=== PATIENT | female | born 1955 | race Caucasian/White ===

== ENCOUNTER → 2019-05-10 12:53 | Outpatient (CLI) | payer MEDICARE, SELFPAY ==
--- NOTE | 2019-05-10 12:58 | BD_ITS ---
STUDY: DUAL ENERGY X-RAY ABSORPTIOMETRY / DXA REASON FOR EXAM: Female, 64 years old. The patient is postmenopausal. Loss of height. TECHNIQUE: Bone Mineral Density (BMD) measurements of lumbar spine and bilateral hips were obtained. COMPARISON: None. FINDINGS: Lumbar Spine (L1-L4): g/cm2 (1.193) / T-score (0.2) / Z-score (1.8) Findings are suggestive of normal bone density with a low fracture risk. Left Femur Total: g/cm2 (0.850) / T-score (-1.3) / Z-score (0.0) Left Femoral Neck: g/cm2 (0.771) / T-score (-1.9) / Z-score (-0.4) Right Femur Total: g/cm2 (0.872) / T-score (-1.1) / Z-score (0.2) Right Femoral Neck: g/cm2 (0.805) / T-score (-1.7) / Z-score (-0.2) BD/Dexa Bone Density Study IMPRESSION: The patient is considered osteopenic as outlined below according to World Woody Organization (WHO) criteria with a moderate fracture risk. Reference Information: The T-score is the number of standard deviations above or below the standard which is normal for young adults at their peak bone mineral density. The World Health Organization (WHO) interprets the T-scores as follows: Above -1 Normal bone density Between -1 and -2.5 Osteopenia Equal to / or below -2.5 Osteoporosis As a practical clinical guideline, osteopenia may be graded as follows: Mild -1 through -1.5 Moderate -1.6 through -2.0 Severe -2.1 through -2.4 The Z-score is the number of standard deviations above or below age-matched controls. A Z-score of less than -1.5 would be considered abnormal. References: 1. NIH Osteoporosis and Related Bone Diseases http://www.osteo.org 2. International Society for Clinical Densitometry http://www.iscd.org 3. National Osteoporosis Foundation http://www.nof.org Electronically Signed: Darell Miranda, at 15:46 EST , Service support ,
--- NOTE | 2019-05-10 12:58 | BI_ITS ---
MAMMOGRAPHY - BILATERAL SCREENING REASON FOR EXAM: Female, 64 years old. Routine annual screening examination. PERTINENT HISTORY: Aunts with breast cancer. TECHNIQUE: Digital bilateral breast john (3D mammographic acquisition) in the CC and MLO projections. 2-D mediolateral oblique (MLO) and craniocaudad (CC) views of both breasts were obtained. CAD: Full Field Digital Mammography with Computer Added Detection was performed. COMPARISON: Comparison is made with prior examination dated November 17, 2015 and July 08, 2014. FINDINGS: Breast Composition: The breasts are heterogeneously dense, which may obscure small masses. There are no dominant masses or suspicious calcifications. No other significant abnormalities are identified. There has been no significant change since the prior study. BI/SCREEN MAMM (CAD) W/JOHN BILAT IMPRESSION: Stable bilateral screening mammogram. Yearly follow-up mammogram recommended. (A) ASSESSMENT CATEGORY: BIRADS Category 1: Negative. A letter regarding these results will be sent to the patient by the facility within 30 days. Approximately 10% of breast cancers are not detected by mammography. A normal mammogram should not delay biopsy of a clinically suspicious abnormality. [id number] Electronically Signed: Darell Miranda, at 8:23 EST , Service support ,
== END ==
PROVIDERS: Family Provider Family Medicine; PCP Family Medicine; Referring Provider Nurse Practitioner Primary Care; Visit Provider Nurse Practitioner Primary Care
DX: Z12.31 Encounter for screening mammogram for malignant neoplasm of breast (principal); Z13.820 Encounter for screening for osteoporosis; Z78.0 Asymptomatic menopausal state; Z80.3 Family history of malignant neoplasm of breast
CPT/HCPCS: 77063; 77067; 77080

== ENCOUNTER → 2020-05-26 07:37 | Outpatient (CLI) | payer MEDICARE, SELFPAY ==
--- NOTE | 2020-05-26 07:40 | BI_ITS ---
MAMMOGRAPHY - BILATERAL SCREENING REASON FOR EXAM: Female, 65 years old. Routine annual screening examination. PERTINENT HISTORY: TECHNIQUE: Digital bilateral breast john (3D mammographic acquisition) in the CC and MLO projections. 2-D mediolateral oblique (MLO) and craniocaudad (CC) views of both breasts were obtained. CAD: Full Field Digital Mammography with Computer Added Detection was performed. COMPARISON: 05/10/2019 and 11/17/2015 and 07/08/2014 FINDINGS: Breast Composition: There are scattered areas of fibroglandular density. There are no dominant masses or suspicious calcifications. No other significant abnormalities are identified. BI/SCREEN MAMM (CAD) W/JOHN BILAT IMPRESSION: Stable bilateral screening mammogram. Yearly follow-up mammogram recommended. (A) ASSESSMENT CATEGORY: BIRADS Category 2: Benign. A letter regarding these results will be sent to the patient by the facility within 30 days. Approximately 10% of breast cancers are not detected by mammography. A normal mammogram should not delay biopsy of a clinically suspicious abnormality. [id number] Electronically Signed: Kate Daley, at 15:28 EST Tel , Service support ,
== END ==
PROVIDERS: PCP Family Medicine; Referring Provider Nurse Practitioner Primary Care; Visit Provider Nurse Practitioner Primary Care
DX: Z12.31 Encounter for screening mammogram for malignant neoplasm of breast (principal)
CPT/HCPCS: 77063; 77067

== ENCOUNTER → 2021-05-27 09:55 | Outpatient (CLI) | payer MEDICARE, SELFPAY ==
--- NOTE | 2021-05-27 09:58 | BI_ITS ---
MAMMOGRAPHY - BILATERAL SCREENING 3-D TOMOSYNTHESIS REASON FOR EXAM: Female, 66 years old. Screening PERTINENT HISTORY: No significant family history. TECHNIQUE: 2-D mammograms and 3-D Tomosynthesis of the breast (s) were performed. CAD was performed. COMPARISON: 05/26/2020 FINDINGS: The breast composition is heterogeneously dense that can obscure small breast masses. Scattered benign calcifications are seen. No dense spiculated masses or suspicious microcalcifications are identified. No architectural distortion is identified. There is no skin thickening or retraction. There has been no significant change since the prior study. BI/SCRN MAMM (CAD)W/JOHN BILAT IMPRESSION: No mammographic signs of malignancy. Routine yearly mammograms recommended. ASSESSMENT CATEGORY: BIRADS Category 1: Negative. A letter regarding these results will be sent to the patient by the facility within 30 days. FOLLOW UP RECOMMENDATION: Yearly follow up mammogram recommended. (A) Approximately 10% of breast cancers are not detected by mammography. A normal mammogram should not delay biopsy of a clinically suspicious abnormality. Electronically Signed: Charles Garcia MD at 11:46 EST Tel , Service support ,
--- NOTE | 2021-05-27 09:59 | BD_ITS ---
STUDY: DUAL ENERGY X-RAY ABSORPTIOMETRY / DXA REASON FOR EXAM: Female, 66 years old. M85.89. Patient is postmenopausal. TECHNIQUE: Bone Mineral Density (BMD) measurements of lumbar spine and bilateral hips were obtained. COMPARISON: Comparison is made with prior examination dated 05/10/2019. FINDINGS: Lumbar Spine (L1-L4): g/cm2 (1.037) / T-score (-0.9) / Z-score (1.9) Findings are suggestive of normal bone density with a low fracture risk. Left Femur Total: g/cm2 (0.808) / T-score (-1.1) / Z-score (0.3) Left Femoral Neck: g/cm2 (0.601) / T-score (-2.2) / Z-score (-0.8) Right Femur Total: g/cm2 (0.834) / T-score (-0.9) / Z-score (0.5) Right Femoral Neck: g/cm2 (0.631) / T-score (-2.0) / Z-score (-0.3) The T-Scores on the most recent prior examination were: Lumbar Spine (L1-L4): There has been worsening of bone density since the previous examination. Left Femur Total: which represents an improvement of 2.6%. Right Femur Total: which represents an improvement of 3%. BD/Dexa Bone Density Study IMPRESSION: The patient is considered osteopenic as outlined below according to World Woody Organization (WHO) criteria with a moderate fracture risk. There has been improvement of bone density since the previous examination. Reference Information: The T-score is the number of standard deviations above or below the standard which is normal for young adults at their peak bone mineral density. The World Health Organization (WHO) interprets the T-scores as follows: Above -1 Normal bone density Between -1 and -2.5 Osteopenia Equal to / or below -2.5 Osteoporosis As a practical clinical guideline, osteopenia may be graded as follows: Mild -1 through -1.5 Moderate -1.6 through -2.0 Severe -2.1 through -2.4 The Z-score is the number of standard deviations above or below age-matched controls. A Z-score of less than -1.5 would be considered abnormal. References: 1. NIH Osteoporosis and Related Bone Diseases www osteo.org 2. International Society for Clinical Densitometry www iscd.org 3. National Osteoporosis Foundation www nof.org Electronically Signed: Darell Miranda MD at 15:38 EST , Service support ,
== END ==
PROVIDERS: PCP Family Medicine; Referring Provider Nurse Practitioner Primary Care; Visit Provider Nurse Practitioner Primary Care
DX: M85.89 Other specified disorders of bone density and structure, multiple sites (principal); Z12.31 Encounter for screening mammogram for malignant neoplasm of breast
CPT/HCPCS: 77063; 77067; 77080

== ENCOUNTER → 2023-06-14 | Outpatient (CLI) | payer MEDICARE, SELFPAY ==
--- NOTE | 2023-06-14 09:23 | BI_ITS ---
MAMMOGRAPHY - BILATERAL SCREENING REASON FOR EXAM: Female, 68 years old. Routine annual screening examination. PERTINENT HISTORY: Aunts with breast cancer. Prior right stereotactic breast biopsy. TECHNIQUE: Digital bilateral breast john (3D mammographic acquisition) in the CC and MLO projections. 2-D mediolateral oblique (MLO) and craniocaudad (CC) views of both breasts were obtained. CAD: Full Field Digital Mammography with Computer Added Detection was performed. COMPARISON: Comparison is made with prior study dated May 27, 2021 and May 26, 2020. FINDINGS: Breast Composition: The breasts are heterogeneously dense, which may obscure small masses. There are no dominant masses or suspicious calcifications. No other significant abnormalities are identified. There has been no significant change since the prior study. BI/SCRN MAMM (CAD)W/JOHN BILAT IMPRESSION: Stable bilateral screening mammogram. Yearly follow-up mammogram recommended. (A) ASSESSMENT CATEGORY: BIRADS Category 1: Negative. A letter regarding these results will be sent to the patient by the facility within 30 days. Approximately 10% of breast cancers are not detected by mammography. A normal mammogram should not delay biopsy of a clinically suspicious abnormality. [id number] Electronically Signed: Darell Miranda MD at 11:08 EST ,
--- NOTE | 2023-06-14 09:28 | BD_ITS ---
STUDY: DUAL ENERGY X-RAY ABSORPTIOMETRY / DXA REASON FOR EXAM: Female, 68 years old. Z780 TECHNIQUE: Bone Mineral Density (BMD) measurements of lumbar spine and bilateral hips were obtained. COMPARISON: Comparison is made with prior study dated May 27, 2021. FINDINGS: Lumbar Spine (L1-L4): g/cm2 (1.039) / T-score (-0.1) / Z-score (2.0) Findings are suggestive of normal bone density with a low fracture risk. Left Femur Total: g/cm2 (0.817) / T-score (-1.0) / Z-score (0.5) Left Femoral Neck: g/cm2 (0.676) / T-score (-1.6) / Z-score (0.2) Right Femur Total: g/cm2 (0.792) / T-score (-1.2) / Z-score (0.3) Right Femoral Neck: g/cm2 (0.595) / T-score (-2.3) / Z-score (-0.5) The T-Scores on the most recent prior examination were: Lumbar Spine (L1-L4): There has been improvement of bone density since the previous examination. Left Femur Total: which represents an improvement of 1.1%. Right Femur Total: which represents a worsening of 5.1%. BD/Dexa Bone Density Study IMPRESSION: The patient is considered osteopenic as outlined below according to World Woody Organization (WHO) criteria with a moderate fracture risk. There has been improvement of bone density since the previous examination. Reference Information: The T-score is the number of standard deviations above or below the standard which is normal for young adults at their peak bone mineral density. The World Health Organization (WHO) interprets the T-scores as follows: Above -1 Normal bone density Between -1 and -2.5 Osteopenia Equal to / or below -2.5 Osteoporosis As a practical clinical guideline, osteopenia may be graded as follows: Mild -1 through -1.5 Moderate -1.6 through -2.0 Severe -2.1 through -2.4 The Z-score is the number of standard deviations above or below age-matched controls. A Z-score of less than -1.5 would be considered abnormal. References: 1. NIH Osteoporosis and Related Bone Diseases www osteo.org 2. International Society for Clinical Densitometry www iscd.org 3. National Osteoporosis Foundation www nof.org Electronically Signed: Darell Miranda MD at 12:34 EST ,
--- OUTSIDE RECORDS SUMMARY | 2023-06-14 09:37 | XMS RPT_ITS | CCD ---
Author Name Unknown Address [address] [place] [address] Organization [facility] Care Team Providers Care Coat Room Attendant Name Role Phone LARRY SHAW, JORGE Chester Primary Care Physician Edmundo GALE, Jess Unavailable [phone] JOSE G SHAW, DR JOANN Llanes Attending Gladys PATEL MD, ADRIANA Dickey Primary Care Unavailable YASMEEN LORENZO, ANAIS Barnes Attending Brandon LORENZO, ANAIS Barnes Primary Care Brandon ilserafin Allergies Allergy Classification Reported Allergen(s) Allergy Type Date of Onset Reaction(s) Facility (1 source) House dust mite drug allergy 08-06-2021 [facility] Work Phone: Medications Current Medications Medication Drug Class(es) Dates Sig (Normalized) Sig (Original) baclofen 10 mg oral tablet (1 source) gamma-Aminobutyri c Acid-ergic Agonist Start: 08-06-2021 End: 08-16-2021 take 1 tablet by mouth three times daily as needed BACLOFEN 10 MG TABS Take 1 tablet by mouth three times a day as needed baclofen [id number] Jess Wyatt PA-C Calcium Citrate (5 sources) Start: 08-18-2020 calcium citrate Oral, BID, 0 Refill(s) Start Date: 08/18/20 Status: Ordered estradiol 0.1 mg/ml vaginal cream (4 sources) Estrogen Start: 04-15-2022 End: 04-10-2023 estradiol 0.1 mg/g vaginal cream 1 gram(s), Vaginal, qHS, # 90 gram(s), 3 Refill(s), Pharmacy: [facility], 166, cm, 04/15/22 8:49:00 EST, Height, kg, 04/15/22 8:49:00 EST, Dosing Weight Start Date: 04/15/22 Stop Date: 04/10/23 Status: Ordered Problems Active Problems Problem Classification Problem Date Documented Da te Episodic/Chronic Other bone disease and musculoskeletal deformities (5 sources) Osteopenia 08-18-2020 Episodic Residual codes; unclassified (5 sources) Family history of cancer 08-20-2020 Episodic Spondylosis; intervertebral disc disorders; other back problems (2 sources) Backache; Translations: [Dorsalgia, unspecified] Onset: 08-06-2021 08-06-2021 Episodic Sprains and strains (1 source) Low back strain; Translations: [Strain of muscle, fascia and tendon of lower back, initial encounter] Onset: 08-06-2021 08-07-2021 Episodic Thyroid disorders (5 sources) Hypothyroidism 04-19-2019 Chronic Unclassified (5 sources) Annual wellness visit 04-19-2019 Unclassified (20 sources) Patient encounter status 04-19-2019 Past or Other Problems Problem Classification Problem Date Documented Da te Episodic/Chronic Unclassified (1 source) Problem Results Test Name Value Interpretation Reference Range Facil ity Vital Signs Date Time Vital Sign Value Performing Clinician Facility NEGATED: Highlighted [id number] 10:54-0500 Body height 162.56 cm Martinaddis Chandra AT [facility] Work Phone: NEGATED: Highlighted [id number] 10:54-0500 Body height 163 cm Martin Chandra AT [facility] Work Phone: NEGATED: Highlighted [id number] 10:54-0500 Body mass index (BMI) [Ratio] 23.26 kg/m2 Martin Chandra AT [facility] Work Phone: NEGATED: Highlighted [id number] 10:54-0500 Body weight 61.24 kg Martin Chandra AT [facility] Work Phone: NEGATED: Highlighted [id number] 10:54-0500 Body weight 61 kg Martin Chandra AT [facility] Work Phone: Encounters Encounter Date Encounter Type Care Provider Facility Start: 04-25-2023 End: 2023 ambulatory ANAIS ARANA AUDIO PRODUCTION MANAGER-CORPORATE REPRESENTATIVE Facility:B Start: 09-27-2022 End: 09-28-[address] JOANN ARAIZA MD Facility:B Start: 04-15-2022 End: 04-15-2022 Patient encounter procedure ANAIS ARANA AUDIO PRODUCTION MANAGER-CORPORATE REPRESENTATIVE [facility] Start: 10-12-2021 End: 10-12-[address] JOANN ARAIZA MD [facility] Start: 09-25-2021 End: 09-25-[address] JOANN ARAIZA MD [facility] Start: 08-13-2021 End: 09-30-2021 Physical therapy management JESS TOLENTINO [facility] Start: 08-06-2021 End: 08-06-2021 Pt evaluation Jess BABIN-Nahid Work Phone: [facility] Work Phone: Start: 04-13-2021 End: 04-13-2021 Patient encounter procedure EDILIA BOWMAN AUDIO PRODUCTION MANAGER-CORPORATE REPRESENTATIVE [facility] Procedures Date Procedure Procedure Detail Performing Clinician Start: 10-12-2021 Echocardiography CECILIO ARANA AUDIO PRODUCTION MANAGER-CORPORATE REPRESENTATIVE Plan of Treatment Date Care Activity Detail Author Start: 08-19-2021 End: 08-19-2021 Patient encounter procedure Appointment [facility] Work Phone: Start: 08-06-2021 End: 08-06-2021 Radex spine lumbosacral minimum 4 views XR LUMBAR 4VWS FLEX/EX [facility] Work Phone: Immunizations Immunization Date Immunization Notes Care Provider Lucero lee 04-15-2022 influenza, high dose seasonal, preservative-free ANAIS ARANA AUDIO PRODUCTION MANAGER-CORPORATE REPRESENTATIVE [facility] 04-09-2021 influenza, high dose seasonal, preservative-free; Translations: [Fluad Quadrivalent PF ] EDILIA BOWMAN AUDIO PRODUCTION MANAGER-CORPORATE REPRESENTATIVE [facility] 07-30-2020 SARS-CoV-2 (COVID-19 ) [id number] vaccine EDILIA BOWMAN AUDIO PRODUCTION MANAGER-CORPORATE REPRESENTATIVE [facility] 03-07-2020 influenza virus vaccine, unspecified formulation EDILIA BOWMAN AUDIO PRODUCTION MANAGER-CORPORATE REPRESENTATIVE [facility] Payers Date Payer Category Payer Unknown [id number] 1955 Unknown [id number] 1955 Unknown [id number] Social History Date Type Detail Facility Start: 04-18-2019 Never smoked tobacco (f inding) [facility] Functional Status Date Assessment Result Facility 08-13-2021 Functional Status [facility] Evaluation + Plan note 04-09-2021 Radiology Note Date & Type Note Facility 04-09-2021 Evaluation + Plan note Future Scheduled TestsBD Bone Density DEXA Axial Skeleton 04/09/21MA Mammo Screening Bilateral w/ Jose 04/09/21 [facility] Evaluation + Plan note Note Date & Type Note Facility Evaluation + Plan note Future Appointments Appointment Date:10/12/2021 11:00:00 AM Scheduled Provider: Location:RAD Appointment Type:CV Procedure - AOH Echo Appointment Date:11/11/2021 02:30:00 PM Scheduled Provider: Location:[facility] Appointment Type:CV OV [facility] Evaluation + Plan note Note Date & Type Note Facility Evaluation + Plan note Future Appointments Appointment Date:11/11/2021 02:30:00 PM Scheduled Provider: Location:[facility] Appointment Type:CV OV [facility] Evaluation note Note Date & Type Note Facility Evaluation note There may be informa tion available, but it has not been provided by the sender. [facility] Work Phone: Hospital course Narrative Note Date & Type Note Facility Hospital course Narrative No data available for this section [facility] Hospital Discharge instructions Note Date & Type Note Facility Hospital Discharge instructions No data available for this section [facility] Instructions Note Date & Type Note Facility Instructions No information available. [facility] Work Phone: Progress note Note Date & Type Note Facility Progress note No data available for this section [facility] Chief Complaint Chief Complaint Description Start Date back pain Preliminary chief co mplaint data, not yet signed by the author as of Advance Directives There may be information available, but it has not been provided by the sender. No Advanced Directives Records Found Family History There may be information available, but it has not been provided by the sender.No Family History Records Found Summary Purpose Additional Source Comments Reason for Visit (unrecogniz ed section and content) Care Team (unrecognized sect ion and content) Personnel Name: JORGE JUAREZ MD Address: [address] Personnel Name: JORGE JUAREZ MD Address: [address] Personnel Name: JORGE JUAREZ MD Address: [address] [place] [address]- Care Team (unrecognized sect ion and content) Care Team Personnel Name: JORGE JUAREZ MD Position: P4 Physician - Primary Care Member Role: Primary Care Physician Address: Address: [address] [place] [address]- Care Team Related Persons Name: JARETT ANGELICA Name: ALLEN COYNE Address: [address] [phone] INFORMATION SOURCE (unrecogn ized section and content) FOR RECORDS PERTAINING TO PATIENTS WHO ARE OR HAVE BEEN ENROLLED IN A CHEMICAL DEPENDENCY/SUBSTANCEABUSE PROGRAM, SOME INFORMATION MAY BE OMITTED. This clinical summary was aggregated from multiple sources. Caution should be exercised in using it in the provision of clinical care. This summary normalizes information from multiple sources, and as a consequence, information in this document may materially change the coding, format and clinical context of patient data. In addition, data may be omitted in some cases. CLINICAL DECISIONS SHOULD BE BASED ON THE PRIMARY CLINICAL RECORDS. [facility]. provides no warranty or guarantee of the accuracy or completeness of information in this document.
== END | disposition home or self-care (01) ==
PROVIDERS: PCP Family Medicine; Referring Provider Nurse Practitioner Primary Care; Visit Provider Nurse Practitioner Primary Care
DX: Z12.31 Encounter for screening mammogram for malignant neoplasm of breast (principal); Z78.0 Asymptomatic menopausal state
CPT/HCPCS: 77063; 77067; 77080

== ENCOUNTER → 2025-03-01 | Outpatient (CLI) | payer MEDICARE, SELFPAY ==
--- NOTE | 2025-03-01 12:07 | BI_ITS ---
EXAM: SCRN MAMM (CAD)W/JOHN BILAT DATE: 03/01/2025 CLINICAL HISTORY: F, Age 69 y/o , SCREENING TECHNIQUE: Procedure Code: BISMWCADBTOM Modality: MG Procedure: SCRN MAMM (CAD)W/JOHN BILAT COMPARISON: Prior exam(s) dated 06/14/2023, 05/27/2021, 05/18/2020. FINDINGS: TISSUE DENSITY: There are scattered areas of fibroglandular density. Bilateral Breast Mammographic Findings: No significant masses, calcifications or other abnormalities are identified. BI/SCRN MAMM (CAD)W/JOHN BILAT IMPRESSION: There is no mammographic evidence of malignancy. OVERALL FINAL ASSESSMENT BI-RADS 1: NEGATIVE. RECOMMENDATION: Routine annual follow-up in 1 Year Additional Recommendation none A letter with findings and recommendations will be mailed to the patient. Reading Location: [id number]
--- NOTE | 2025-03-01 12:07 | BI_ITS ---
EXAM: SCRN MAMM (CAD)W/JOHN BILAT DATE: 03/01/2025 CLINICAL HISTORY: F, Age 69 y/o , SCREENING TECHNIQUE: Procedure Code: BISMWCADBTOM Modality: MG Procedure: SCRN MAMM (CAD)W/JOHN BILAT COMPARISON: Prior exam(s) dated 06/14/2023, 05/27/2021, 05/18/2020. FINDINGS: TISSUE DENSITY: There are scattered areas of fibroglandular density. Bilateral Breast Mammographic Findings: No significant masses, calcifications or other abnormalities are identified. BI/SCRN MAMM (CAD)W/JOHN BILAT IMPRESSION: There is no mammographic evidence of malignancy. OVERALL FINAL ASSESSMENT BI-RADS 1: NEGATIVE. RECOMMENDATION: Routine annual follow-up in 1 Year Additional Recommendation none A letter with findings and recommendations will be mailed to the patient. Reading Location: [id number]
== END | disposition home or self-care (01) ==
LOC: OPBI 12:05
PROVIDERS: PCP Family Medicine; Referring Provider Nurse Practitioner Primary Care; Visit Provider Nurse Practitioner Primary Care
DX: Z12.31 Encounter for screening mammogram for malignant neoplasm of breast (principal)
CPT/HCPCS: 77063; 77067